=== PATIENT | female | born 1960 | race Hispanic/Latino ===

== ENCOUNTER 2018-07-26 08:57 | Emergency (ER) | payer BC | END 2018-07-26 09:35 | disposition home or self-care (01) | LOC: EDH 08:57 | DX: L72.3 Sebaceous cyst (principal); L03.312 Cellulitis of back [any part except buttock and flank]; E11.9 Type 2 diabetes mellitus without complications; E78.5 Hyperlipidemia, unspecified | CPT/HCPCS: 82948 ==